=== PATIENT | male | born 1990 | race Caucasian/White ===

== ENCOUNTER 2017-02-02 17:51 | Emergency (ER) | payer MEDICAID ==
[~2017-02-02] VITALS: Ht 188 cm; Wt 146.3 kg
[2017-02-02 22:20] VITALS: BP 137/85
== END 2017-02-02 22:20 | disposition home or self-care (01) ==
LOC: ED 17:51
DX: S61.212A Laceration without foreign body of right middle finger without damage to nail, initial encounter (principal); S61.214A Laceration without foreign body of right ring finger without damage to nail, initial encounter; J45.909 Unspecified asthma, uncomplicated; W45.8XXA Other foreign body or object entering through skin, initial encounter; Y93.89 Activity, other specified; Y99.8 Other external cause status; Y92.89 Other specified places as the place of occurrence of the external cause
CPT/HCPCS: 90715; J2001; Q0092

== ENCOUNTER 2017-03-30 17:38 | Emergency (ER) | payer MEDICAID ==
[2017-03-30 18:59] VITALS: BP 122/92
== END 2017-03-30 18:59 | disposition home or self-care (01) ==
LOC: ED 17:38
DX: S05.91XA Unspecified injury of right eye and orbit, initial encounter (principal); W50.0XXA Accidental hit or strike by another person, initial encounter; Y93.89 Activity, other specified; Y99.8 Other external cause status; Y92.89 Other specified places as the place of occurrence of the external cause

== ENCOUNTER 2017-07-30 15:59 | Emergency (ER) | payer MEDICAID ==
[~2017-07-30] VITALS: Ht 190.5 cm; Wt 121.2 kg
[2017-07-30 18:23] LABS: BASOPHIL % 0.8 % (0-2); PLATELET COUNT 255 x10^3mcL (130-400); RED CELL DISTRIBUTION WIDTH 13.4 % (11.5-14.5)
[2017-07-30 18:43] LABS: CALCIUM 9.4 mg/dL (8.5-10.1); CARBON DIOXIDE 25.3 mmol/L (21-32); CHLORIDE SERUM 108 mmol/L (98-107); CREATININE SERUM 0.8 mg/dL (0.7-1.3); GFR1 > 60 mL/min; GLUCOSE SERUM 90 mg/dL (74-106); POTASSIUM SERUM 4.1 mmol/L (3.5-5.1); SODIUM SERUM 141 mmol/L (136-145)
[2017-07-30 18:48] LABS: ALKALINE PHOSPHATASE 80 U/L (46-116); ALT/SGPT 33 U/L (16-63); AST/SGOT 15 U/L (15-37); LIPASE 102 IU/L (73-393); TOTAL PROTEIN, SERUM 7.7 g/dL (6.4-8.2)
[2017-07-30 21:27] VITALS: BP 133/74
== END 2017-07-30 21:27 | disposition home or self-care (01) ==
LOC: ED 15:59
PROVIDERS: Emergency Medicine
DX: R10.13 Epigastric pain (principal); R10.12 Left upper quadrant pain; R11.10 Vomiting, unspecified; K21.9 Gastro-esophageal reflux disease without esophagitis; J45.909 Unspecified asthma, uncomplicated; Z98.890 Other specified postprocedural states
CPT/HCPCS: 36415

== ENCOUNTER 2018-01-08 00:28 | Emergency (ER) | payer MEDICAID ==
[~2018-01-08] VITALS: Ht 190.5 cm; Wt 127.6 kg
[2018-01-08 00:33] VITALS: Ht 190.5 cm; Wt 127.6 kg
[2018-01-08 04:03] VITALS: BP 110/79
== END 2018-01-08 04:00 | disposition home or self-care (01) ==
LOC: ED 00:28
DX: J45.901 Unspecified asthma with (acute) exacerbation (principal); K21.9 Gastro-esophageal reflux disease without esophagitis; Z91.013 Allergy to seafood
CPT/HCPCS: J2930; J7512; J7620

== ENCOUNTER 2018-12-21 03:53 | Emergency (ER) | payer MEDICAID ==
[~2018-12-21] VITALS: Ht 190.5 cm; Wt 122.9 kg
[2018-12-21 06:14] VITALS: BP 134/78
== END 2018-12-21 06:14 | disposition home or self-care (01) ==
LOC: ED 03:53
DX: N45.1 Epididymitis (principal); K21.9 Gastro-esophageal reflux disease without esophagitis; J45.909 Unspecified asthma, uncomplicated; Z98.84 Bariatric surgery status; Z88.8 Allergy status to other drugs, medicaments and biological substances; Z91.013 Allergy to seafood
CPT/HCPCS: 87491; 87591; Q0092

== ENCOUNTER 2019-12-02 11:37 | Emergency (ER) | payer MEDICAID ==
[~2019-12-02] VITALS: Ht 182.9 cm; Wt 114.8 kg
[2019-12-02 12:02] VITALS: Ht 182.9 cm; Wt 114.8 kg
[2019-12-02 12:41] LABS: BASOPHIL % 0.5 % (0-2); PLATELET COUNT 252 x10^3mcL (130-400); RED CELL DISTRIBUTION WIDTH 12.9 % (11.5-14.5)
[2019-12-02 13:11] LABS: ALBUMIN 3.9 g/dL (3.4-5.0); CALCIUM 9.6 mg/dL (8.5-10.1); CARBON DIOXIDE 25.4 mmol/L (21-32); CHLORIDE SERUM 105 mmol/L (98-107); CREATININE SERUM 0.9 mg/dL (0.7-1.3); GFR1 > 60 mL/min; GLUCOSE SERUM 94 mg/dL (74-106); POTASSIUM SERUM 3.8 mmol/L (3.5-5.1); SODIUM SERUM 142 mmol/L (136-145); TOTAL PROTEIN, SERUM 7.5 g/dL (6.4-8.2)
[2019-12-02 13:12] LABS: ALKALINE PHOSPHATASE 100 U/L (46-116); ALT/SGPT 23 U/L (16-63); AST/SGOT 11 U/L (15-37); BILIRUBIN TOTAL 1.3 mg/dL (0.20-1.00)
[2019-12-02 15:08] VITALS: BP 120/66
== END 2019-12-02 15:08 | disposition home or self-care (01) ==
LOC: ED 11:37
PROVIDERS: Student in an Organized Health Care Education/Training Program
DX: F41.9 Anxiety disorder, unspecified (principal); R07.89 Other chest pain; J45.909 Unspecified asthma, uncomplicated; K21.9 Gastro-esophageal reflux disease without esophagitis; Z98.890 Other specified postprocedural states; Z88.6 Allergy status to analgesic agent; Z91.041 Radiographic dye allergy status; Z91.013 Allergy to seafood
CPT/HCPCS: J2060; J2405; Q0092

== ENCOUNTER 2020-03-24 17:10 | Emergency (ER) | payer MEDICAID ==
[~2020-03-24] VITALS: Ht 190.5 cm; Wt 117.5 kg
[2020-03-24 17:19] VITALS: Ht 190.5 cm; Wt 117.5 kg
[2020-03-24 18:36] VITALS: BP 122/71
== END 2020-03-24 18:36 | disposition home or self-care (01) ==
LOC: ED 17:10
DX: S80.12XA Contusion of left lower leg, initial encounter (principal); M25.522 Pain in left elbow; J45.909 Unspecified asthma, uncomplicated; K21.9 Gastro-esophageal reflux disease without esophagitis; Z88.6 Allergy status to analgesic agent; Z88.8 Allergy status to other drugs, medicaments and biological substances; Z91.013 Allergy to seafood; W10.8XXA Fall (on) (from) other stairs and steps, initial encounter; Y93.01 Activity, walking, marching and hiking; Y92.89 Other specified places as the place of occurrence of the external cause; Y99.8 Other external cause status